=== PATIENT | male | born 1955 | race Caucasian/White ===

== ENCOUNTER 2017-07-25 09:19 | Inpatient (IN) ==
[2017-07-25] MEDS ORDERED: ASPIRIN PO STA (09:27)
--- NOTE | 2017-07-25 09:35 | EKG Report ---
Test Performed on : 07/25/2017 09:27:38 AM Test Reason : Chest Pain Blood Pressure : / mmHG Vent. Rate : 106 BPM Atrial Rate : 106 BPM P-R Int : 166 ms QRS Dur : 090 ms QT Int : 320 ms P-R-T Axes : 084 067 110 degrees QTc Int : 425 ms Sinus tachycardia. Possible Inferior infarct , age undetermined ST \T\ T wave abnormality, consider lateral ischemia Abnormal ECG When compared with ECG of 02-NOV-2016 09:49, No significant change was found Unconfirmed Result
[2017-07-25] MEDS ORDERED: ZOFRAN IV ONE (10:03)
[2017-07-25] MEDS ORDERED: MORPHINE IV ONE (10:03)
[2017-07-25 10:22] LABS: BASO% 0.2 % (0.0-0.8); EOS# 0.05 X1000 (0.0-0.7); EOS% 0.2 % (0.0-10.0); HEMATOCRIT 33.8 % (42.0-52.0); HEMOGLOBIN 11.4 g/dL (14.0-18.0); MCH 29.6 PG (27-31); MCHC 33.7 g/dL (33-37); MCV 87.8 FL (81-99); MPV 10.1 FL (7.4-10.4); PLT 125 X1000 (130-400); RBC 3.85 XMIL (4.7-6.1)
[2017-07-25 10:31] LABS: INR 1.04; PTT 28.3 Seconds (22.0-36.0)
--- NOTE | 2017-07-25 10:31 | Diag Imaging Result Doc PS360 ---
EXAM: CHEST-PORTABLE HISTORY: chest pain TECHNIQUE: Portable COMPARISON: 11/02/2016 FINDINGS: There are increased interstitial markings in the mid right lung. These are similar to the prior study. The heart is not enlarged. Pulmonary vessels are not distended. No pleural effusions identified. IMPRESSION: Increased interstitial markings in the mid right lung believed to be fibrosis. Electronically signed by Alexis Madison 07/25/2017 10:28 AM
--- NOTE | 2017-07-25 10:35 | PROVIDER DOCUMENTATION ---
HPI-General Adult - General Chief Complaint: Chest Pain Stated Complaint: CP/SOB Time Seen by Provider: 07/25/17 09:48 Source: patient, family Allergies/Adverse Reactions: Patient Allergies Allergy/AdvReac Type Severity Reaction Status Date / Time No Known Allergies Allergy Verified 07/25/17 10:50 Home Medications: Home Medication List Medication Instructions Recorded Confirmed Last Taken Type Potassium Chloride 8 meq PO DAILY #0 05/29/16 07/25/17 10/07/16 08:00 Rx Albuterol Sulfate [Proair Hfa] 2 puff IH Q6H PRN PRN 10/31/16 07/25/17 Unknown History Fluticasone/Salmeterol [Advair 1 inh INH Q12H 10/31/16 07/25/17 Unknown History 500-50 Diskus] Ipratropium/Albuterol Sulfate 1 inh INH Q4-6H PRN PRN 10/31/16 07/25/17 Unknown History [Iprat-Albut 0.5-3(2.5) mg/3 ml] Omeprazole 40 mg PO DAILY@0700 10/31/16 07/25/17 07/24/17 21:00 History Tiotropium [place] Inhaler 18 mcg IH DAILY 10/31/16 07/25/17 Unknown History [Spiriva] Albuterol 2.5MG/Ipratrop 0.5MG 3 ml INH RTQ4H #120 neb 11/02/16 07/25/17 Unknown Rx [Duoneb (A & A)] Alprazolam [Xanax] 1 mg PO BID #30 tablet 11/02/16 07/25/17 07/24/17 20:00 Rx Calcium Carbonate Chew [Tums] 500 mg PO TID #0 tab.chew 11/02/16 07/25/17 Unknown Rx Hydrocodone/Acetaminophen [[place] 1 each PO TID #30 tablet 11/02/16 07/25/17 20:00 Rx 7.5-325 Tablet] - History of Present Illness -Gen Adult Nature of Presenting Problems: Patient presents complaining of intermittent chest pain for last 24 hours. He was seen by his oncologist yesterday, Dr. Gallagher, and was scheduled for abd/ct for today for a questionable abd mass. He has history of leukemia. Not on chemo but is on "something for my immune system". During this CT scan pt experienced chest pain. He was sent here for further evaluation. He has several elevated troponins in march of 2016 during an admission for sepsis but I can find no other information about this. He does not that he has not had any of his pain medication today. on oxygen at home. Of note, his abd CT done this morning shows severe splenomegaly and severe arteriosclerosis. Location of Pain/Injury: reports: chest Pain Radiation: reports: no radiation Quality of Pain: reports: aching Severity: reports: moderate Onset/Duration: reports: 24 hours ago Timing: reports: intermittent Context/Activities at Onset: reports: none Modifying Factors: improves with: nothing Associated Symptoms: reports: chest pain. denies: anxiety, arm pain, cough, diarrhea, dizziness, fever/chills, headaches, muscle aches, sinus congestion/ drainage, nausea, rash, shortness of breath, pain with inspiration, syncope, vomiting Similar Symptoms Previously?: No Recently seen or treated by another doctor?: Yes Review of Systems - Adult - REVIEW OF SYSTEMS - ADULT Constitutional: reports: no symptoms reported Eyes: reports: no symptoms reported Ears, Nose, Mouth & Throat: reports: no symptoms reported Cardiovascular: reports: see HPI Respiratory: reports: no symptoms reported Gastrointestinal: reports: abdominal pain Genitourinary: reports: no symptoms reported Musculoskeletal: reports: no symptoms reported Integumentary: reports: no symptoms reported Neurological: reports: no symptoms reported Psychiatric: reports: no symptoms reported Endocrine: reports: no symptoms reported Hematologic/Lymphatic: reports: no symptoms reported Allergic/Immunologic: reports: no symptoms reported All Other Systems: Reviewed and Negative Past History - Adult - PAST MEDICAL HISTORY-ADULT Review of Records: reports: Old Records Reviewed Major Childhood Illnesses: reports: denies history Cardiovascular: reports: CHF, ID (x2) Respiratory: reports: asthma, COPD Neurological: reports: dementia Endocrine/Immune: reports: Leukemia Additional History: slow progressing leukemia - PRIOR SURGERIES/PROCEDURES Surgical/Procedure History: reports: cholecystectomy - IMMUNIZATION STATUS Childhood Immunizations: See Nurse Assessment Flu Vaccine: See Nurse Assessment - FAMILY HISTORY Family History: reviewed, not pertinent - SOCIAL HISTORY Smoking: quit greater than 1 year Substance Use: none/never Alcohol Use Frequency: sober (former use) Living Situation: family Physical Exam-General - PHYSICAL EXAM-ADULT Initial Vital Signs Reviewed: Yes - CONSTITUTIONAL General Appearance: alert, no apparent distress, thin - EYES Eyes: PERRL/EOMI, pink conjunctivae - HEAD, EARS, NOSE, MOUTH & THROAT HENMT: normocephalic/atraumatic - NECK Neck: supple - RESPIRATORY Respiratory: lungs clear, normal breath sounds, no pleuratic chest pain - CARDIOVASCULAR Cardiovascular: normal peripheral pulses, regular rate, rhythm - GASTROINTESTINAL (ABDOMEN) Abdominal Exam: normal bowel sounds, soft, other (splenomegaly) - LYMPHATIC Lymphatic: no adenopathy - MUSCULOSKELETAL Back Exam: normal inspection Extremity: non-tender, normal gait, normal inspection - SKIN Integumentary: normal color - NEUROLOGIC Neurologic: grossly normal - PSYCHIATRIC Psych/Mental Status: normal mood/affect, oriented x 3 Progress - PLAN OF CARE/RESULTS Progress/Plan/Lab Results: Vital Signs - 8 hr 07/25/17 09:24 Temperature 97.7 F Pulse Rate 114 H Respiratory Rate 20 Blood Pressure 119/81 O2 Sat by Pulse Oximetry 99 Laboratory Results - last 24 hr 07/25/17 07/25/17 10:05 10:05 WBC 31.80 H RBC 3.85 L Hgb 11.4 L Hct 33.8 L MCV 87.8 MCH 29.6 MCHC 33.7 RDW Std Deviation 14.9 H Plt Count 125 L MPV 10.1 Neut % (Auto) Not Reportable Lymph % (Auto) Not Reportable [place] % (Auto) Not Reportable Eos % (Auto) 0.2 Baso % (Auto) 0.2 Neut # (Auto) Not Reportable Lymph # (Auto) Not Reportable [place] # (Auto) Not Reportable Eos # (Auto) 0.05 Baso # (Auto) 0.05 PT 11.0 INR 1.04 PTT (Actin FS) 28.3 Orders Category Date Time Status Cardiac Monitoring DIRECTED Care 07/25/17 09:27 Active Oxygen Therapy- ED Nursing DIRECTED Care 07/25/17 09:27 Active Saline Loc NOW Care 07/25/17 09:27 Active CHEST-PORTABLE [RAD] Stat Exams 07/25/17 10:03 Completed CBC WITH ELECTRONIC DIFF [HEME] Stat Lab 07/25/17 10:05 Completed CK PROFILE [SP CHEM] Stat Lab 07/25/17 10:05 Received COMPREHENSIVE METABOLIC PANEL [CHEM] Stat Lab 07/25/17 10:05 Received MAGNESIUM [CHEM] Stat Lab 07/25/17 10:05 Received PRO B-NATRIURETIC PEPTIDE Stat Lab 07/25/17 10:05 Received PROTIME WITH INR [COAG] Stat Lab 07/25/17 10:05 Completed PTT [COAG] Stat Lab 07/25/17 10:05 Completed TROPONIN T Stat Lab 07/25/17 10:05 Received Aspirin Med 07/25/17 09:27 Discontinued 325 mg PO STAT STA Morphine Med 07/25/17 10:03 Discontinued 4 mg IV NOW ONE Ondansetron [Zofran] Med 07/25/17 10:03 Discontinued 4 mg IV NOW ONE EKG [EKG] Stat Ther 07/25/17 09:27 Draft Result Diagrams: 07/25/17 10:05 07/25/17 10:05 - REASSESSMENT Reassessment #1 Time Reassessed: 11:42 Status: improving (pt is feeling better. His chest pain has improved. He has significant lateral EKG changes. Un Will admit for trending of troponins and further management. Pt seen by Dr. Walls.) - CONSULTS/PCP/HOSPITALIST Notification #1 *Consult/PCP/Hospitalist*: ASHLEY Donohue for Dr. Zarate Time Discussed: 11:48 Consult Disposition: Admit (obtain d-dimer.) Departure - Departure Date of Disposition Decision: 07/25/17 Time of Disposition Decision: 11:48 DIAGNOSIS: Abnormal EKG, Elevated d-dimer Chest pain Qualifiers: Chest pain type: unspecified Qualified Code(s): R07.9 - Chest pain, unspecified Leukocytosis Qualifiers: Leukocytosis type: unspecified Qualified Code(s): D72.829 - Elevated white blood cell count, unspecified Disposition: ADMITTED INPATIENT 09 Certified Medical Emergency: Emergent Condition: Stable Referrals and Follow-Ups: Gautam Evans MD [Primary Care Provider] - - Critical Care Note This patient required my direct & personal management of CC.: No Attestation - Physician/ [place] Attestation Patient care was provided by Advanced Practice Provider:: Yes Advanced Practice Provider:: Mat Boykin Advanced Practice Provider documentation review:: The Mid-level provider documentation, treatment plan and medical decision making was reviewed by the physician who agrees with all treatment and medical decision making by the P. The physician spent face to face time with patient:: Yes Advanced Practice Provider documentation review:: Supervising physician onsite and consulted in the evaluation and care of this patient. The physician did have a face to face encounter with the patient.
[2017-07-25 10:44] LABS: AGAP 9; ALBUMIN 3.9 g/dL (3.5-5.0); ALKALINE PHOSPHATASE 69 U/L (32-122); BUN 14 mg/dL (8-22); CALCIUM 8.4 mg/dL (8.8-10.2); CHLORIDE 98 mmol/L (98-107); CK PROFILE 30 U/L (24-204); COSMO 271; GOT 15 U/L (10-34); GPT 6 U/L (10-44); MAGNESIUM 1.7 mg/dL (1.5-2.7); POTASSIUM 4.7 mmol/L (3.5-5.1); SODIUM 135 mmol/L (136-145); TCO2 28 mmol/L (25-35); TOTAL BILIRUBIN 0.63 mg/dL (0.20-1.00); TOTAL PROTEIN 6.8 g/dL (6.3-8.3)
[2017-07-25 11:05] LABS: URINE CULTURE NEEDED? NO; URINE MICRO REVIEW NEEDED? NO; URINE SOURCE CLEAN CATCH
[2017-07-25 11:12] LABS: BILIRUBIN URINE NEGATIVE (NEGATIVE); BLOOD URINE NEGATIVE (NEGATIVE); COLOR YELLOW; GLUCOSE URINE NEGATIVE (NEGATIVE); LEUKOCYTES URINE NEGATIVE (NEGATIVE); NITRITE URINE NEGATIVE (NEGATIVE); PROTEIN URINE NEGATIVE (NEGATIVE); SP GRAVITY URINE 1.041; TURBIDITY URINE CLEAR (CLEAR); UR EPITHELIAL CELLS <10 /HPF (<10); URINE BACTERIA NEGATIVE /HPF; URINE RBC <10 /HPF (<10); URINE WBC <10 /HPF (<10); UROBILINOGEN URINE NORMAL (NORMAL)
--- NOTE | 2017-07-25 12:05 | ED EKG INTERP ---
This chart was entered by Janina Yi Scribe, acting as scribe for Hillary Walls MD. EKG Interpretation - EKG Time of EKG reading by physician:: 09:27 EKG Read and Signed by:: Hillary Walls EKG Interpretation (*Must complete 3 of following elements*): Abnormal (ST & T wave abnormality, consider lateral ischemia) Rate: 106 Rhythm: sinus tachycardia Comments: possible inferior infarct, age undetermined Attestation - Physician/ [place] Attestation Patient care was provided by Advanced Practice Provider:: No The physician spent face to face time with patient:: Yes Advanced Practice Provider documentation review:: Supervising physician onsite and consulted in the evaluation and care of this patient. The physician did have a face to face encounter with the patient. This chart was documented by the indicated scribe, (Janina Yi Scribe) and accurately reflects the services I performed and decisions made by me, Hillary Walls MD, as attested by the provider's signature.
[2017-07-25 12:19] LABS: MANUAL DIFF NEEDED? YES
[2017-07-25 12:22] LABS: LYMPHS 50 % (21-51); MONO 14 % (1-9); NRBC 1 % (0-0)
[2017-07-25 12:37] LABS: HYPOCHROM 1+
--- NOTE | 2017-07-25 15:05 | HISTORY AND PHYSICAL ---
PCP: Dr. Gautam Evans. [employer] RELATIONS COORDINATOR: Dr. Paige. CHIEF COMPLAINT: Chest pain. HISTORY OF PRESENT ILLNESS: Mr. Cast is a 61-year-old male with a history of CLL followed by Dr. Gallagher, COPD, coronary disease, nicotine dependence who presents to the ER with 24 hours of abdominal and chest pain. Symptoms began yesterday when he began to complain of some abdominal pain, he went to Dr. Gallagher's office who ordered a CT scan of the abdomen and pelvis today for concern of abdominal mass. This morning the patient was in CT and began experiencing a chest pain in the midsternum associated with shortness of breath, he has also had abdominal pain and nausea. He got done with the CAT scan and was transferred to the ER for further evaluation. In the ER he had several labs and diagnostics done. His EKG showed nonspecific ST changes in the lateral leads, he had a profound leukocytosis, elevated D-dimer and elevated proBNP. He reports he is not on chemotherapy but is on something for his "immune system" that he takes once a month. He has not had any lower extremity edema and no orthopnea, no cough or fever, no sputum production. A chest x-ray done in the ER today showed interstitial markings in the mid right lung believed to be fibrosis. He is now going to be admitted for further treatment evaluation. PAST MEDICAL HISTORY: 1. COPD. 2. Nicotine dependence. 3. CLL followed by Dr. Gallagher. 4. Chronic pain. 5. Anxiety. 6. GERD. SURGICAL HISTORY: He has had a cholecystectomy, face and nose surgery. SOCIAL HISTORY: He smokes a pack a day, drinks 2 beers a day. He takes 1 dose of NyQuil every night for sleep has been doing so for multiple years. Family is at the bedside. FAMILY HISTORY: Noncontributory. REVIEW OF SYSTEMS: Fourteen-point review of systems obtained found to be negative with the exception of the HPI. HOME MEDICATIONS: Albuterol inhaled every 4 hours, Xanax 1 mg p.o. b.i.d., Tums 500 mg p.o. t.i.d., fluticasone 1 inhaled q.12 hours, hydrocodone t.i.d., omeprazole 40 mg daily, KCl 8 mEq p.o. daily, Spiriva inhaled as directed. ALLERGIES: No known drug allergies. PHYSICAL EXAMINATION: VITAL SIGNS: Blood pressure is 98/66, heart rate 88, respiratory 16, O2 saturation 97% on 2 L, temperature is 97.7 degrees. GENERAL: This is a cachectic appearing 61-year-old male lying in hospital bed no acute distress. NEUROLOGIC: He is awake, alert, oriented. Follows commands without focal deficits. HEENT: Head is atraumatic and normocephalic. His pupils are equal, round, reactive to light. Oral mucosa is moist. Trachea is midline. CHEST: Diminished at the bases with Velcro type crackling over the right mid lung zone. CV: Regular rate and rhythm. S1-S2 is noted. No murmurs. GI: Soft, nontender, bowel sounds are hypoactive. EXTREMITIES: No edema, clubbing or cyanosis. Pulses are trace bilaterally. DIAGNOSTIC DATA: Abdomen and pelvis CT done earlier today shows very severe splenomegaly similar prior COPD with chronic bronchitis, very severe peripheral vascular disease involving both pelvic and femoral artery systems, nonobstructing right renal stone. EKG sinus rhythm with nonspecific ST changes in the lateral leads. WBC 31.8, hemoglobin 11.4, hematocrit 33.8, platelet count is 125,000, INR 1.04, D-dimer 1.08, sodium 135, potassium 4.7, chloride 98, CO2 28, anion gap 9, BUN 14, creatinine 1, glucose is 100, calcium 8.4, magnesium 1.7, total bilirubin 0.63, AST 15, ALT 6, alkaline phosphatase 69, troponin 0.045, proBNP 7471, albumin 3.9. UA is negative. ASSESSMENT/PLAN: 1. Chest pain: We are going to admit the patient to the floor with telemetry, will trend his enzymes, make sure he has had aspirin and consult Cardiology. Will order an echocardiogram as well. 2. Congestive heart failure: The patient has a history of diastolic failure. His pro B is 7400. We are going to recheck echocardiogram to evaluate the right heart and pulmonary pressures given his COPD. 3. Leukocytosis: Unlikely to be infectious. A review of his WBCs from all his past admission shows he has had a chronically elevated white count since 2013 and he is on Neupogen. We are going to check blood cultures and lactic acid. 4. Chronic obstructive pulmonary disease. Continue oxygen as needed and nebs. He does have some mild abnormalities on his chest x-ray, it is possible he could have fibrosis. Will order a CT for the morning given that he has had full IV contrast load today. 5. Anxiety and chronic pain: Chronic and stable, continue home medications. 6. Deep vein thrombosis prophylaxis with Lovenox. Further recommendations to follow. Dictated by CHELY Zimmerman for Lazaro France MD cc: CHELY Zimmerman MD
[2017-07-25] MEDS ORDERED: NORCO-7.5 ONE (15:44)
[2017-07-25] MEDS ORDERED: XANAX ONE (15:44)
[2017-07-25] MEDS: NORCO-7.5 PO SCH ×2 (15:50→22:13)
[2017-07-25] MEDS: XANAX PO SCH ×2 (15:50→22:14)
[2017-07-25] MEDS ORDERED: DUONEB (A & A) INH PRN (17:31)
[2017-07-25] MEDS: DUONEB (A & A) INH SCH ×3 (17:53→23:00)
--- NOTE | 2017-07-25 18:25 | CONSULTATION ---
DATE OF CONSULTATION: 07/25/2017 CHIEF COMPLAINT: Abdominal pain, weakness, nausea. REASON FOR CONSULTATION: Chest pain that happened today during a test. HISTORY: Mr. Cast is a 61-year-old male, patient of Dr. Evans and Dr. Paige, who presented to Dr. Gallagher's office yesterday for a checkup. Dr. Gallagher told him that he had a possible mass in the abdomen. Overnight he had the sensation of pain in the upper abdomen, cramping tightness in the lower chest. The patient said that he had eaten some onion the day before and he continued to taste the onion in his mouth all day long. Late last night the pain crept up. It was more uncomfortable. Early in the morning hours he felt somewhat better and he came for an elective CT scan of the abdomen ordered by Dr. Gallagher to check on the possible mass. As he was holding his arms up for the CT scan, he developed significant pain in the chest and abdomen, and that is when they had to take him to the emergency room, and they all decided to put him in the hospital for evaluation. His electrocardiogram done at that time, which was 9:27 in the morning, shows sinus tachycardia with a diffuse nonspecific T wave change. That is not a new finding. His abdomen and pelvis CT was reported as indicating the presence of very severe splenomegaly similar to a prior study from May of last year. He had COPD with chronic bronchitis and the interesting finding was severe peripheral occlusive vascular disease involving both iliac vessels and femoral vessels. At any rate, the patient has felt somewhat better since he was seen in the ER. His chest x-ray has been reported as indicating increased interstitial markings in the mid right lung, probably fibrosis. He has been sent for an echocardiogram that has just been finished and now he is being admitted to the hospital for further management. Of note, his white count is 31,800, his hemoglobin is 11.4. He has 10% neutrophils, 50% lymphocytes, 1% nucleated RBCs, 18% atypical lymphocytes, 8% unidentified cells, and 40% monocytes. His BUN and creatinine are normal. His proBNP was elevated at 7471. Troponin was negative. The patient basically is feeling fine when I am seeing him at about 5 p.m. PAST MEDICAL HISTORY: His past history is significant for COPD. He has had a previous non ST elevation myocardial infarction on a previous hospital admission. He was taken to [facility] where they decided not to proceed with heart catheterization. They did instead a myocardial perfusion study which showed a fixed inferior defect consistent with an old inferior scar. According to that test, his ejection fraction was calculated at 40%. There was inferior akinesis. The patient has been really undernourished. His body weight has been in the 97 pound range. He has history of anxiety. He has been treated by Dr. Gallagher for chronic lymphocytic leukemia. He has a history of hypothyroidism. REVIEW OF SYSTEMS: His review of systems is positive for chronic exertional dyspnea. He has to use oxygen at home. He has always been underweight. Appetite is really not that good. SOCIAL HISTORY: He is . He lives with one daughter. He has had a total of four children, one young. He has been a smoker in the past and also a drinker in the past. PAST SURGICAL HISTORY: He has had hernia repair, cholecystectomy, and rectal surgery. FAMILY HISTORY: His family history is positive for coronary heart disease in the mother and a sister. HOME MEDICATIONS: His home medications at the time of this admission included the followin. Albuterol inhaler. 2. Alprazolam 1 mg twice a day. 3. Omeprazole 40 daily. 4. Potassium chloride 80 mEq daily. 5. Spiriva inhaler. 6. Advair 500/50 Diskus inhaler every 12 hours. 7. Hydrocodone/acetaminophen 1 tablet 3 times a day. He has chronic pain in the lower back and legs. He does have claudication. PHYSICAL EXAMINATION: Vital signs: Blood pressure today is 136/74. Temperature 98.4. Pulse 73. Respirations 16. General: He is awake, alert, oriented. He appears to be much older than his stated age. He appears to be cachectic. HEENT: Unremarkable. Chest: Diminished breath sounds bilaterally with occasional rales. Cardiovascular: Heart sounds are distant, regular. I do not hear any gallop or murmur. Abdomen: Soft with some tenderness in the left upper quadrant. I believe there is splenomegaly. The spleen edge is somewhat dull and slightly tender. It occupies a fair amount of the left upper quadrant. The liver is palpable about 2 fingerbreadths below the right rib margin. Bowel sounds diminished. Extremities: No palpable pulses in the feet. Significant muscle wasting. Neurologic: He moves four extremities, follows commands. Cranial nerves are normal. He has subtle diffuse weakness. LABORATORY DATA: Blood work, in addition to what I just said, includes sodium 135, potassium 4.7, BUN 14, creatinine 1.0, magnesium 1.7. CK 30. Albumin 3.9. Globulin is 2.9. IMPRESSION: 1. The patient presented to the hospital because he developed an episode of chest pain while having a CT scan of the chest. This is truly atypical. This is really not angina pain. 2. History of coronary heart disease, previous myocardial infarction, non ST elevation, with documentation of an inferior wall scar in 2016, impaired ejection fraction of 40%, probably ischemic cardiomyopathy. 3. Radiographic evidence of bilateral occlusive arterial disease involving the iliac vessels and the femoral vessels. Please refer to CT report from today, July 25. 4. Chronic obstructive pulmonary disease. 5. Splenomegaly related to patient's underlying hematological malignancy, presumably chronic lymphocytic leukemia, being treated by Dr. Gallagher. RECOMMENDATIONS: At this point in time, I would suggest to get Dr. Gallagher's opinion regarding this patient's marked leukocytosis. This may or may not represent simply progression of his condition or additional intercurrent infection. The patient appears to have chronic systolic heart failure which is manifested by chronic dyspnea and his elevate proBNP. Echocardiogram has been obtained already. It is going to be reported later. I would suggest to consider using LIDYA inhibitors on him to manage his heart failure or angiotensin blockers or try Entresto. Beta-blockers could be potentially contraindicated because of his advanced COPD. At any rate, I do not believe this patient had a heart attack. We will obtain serial troponin levels and serial EKGs to make sure that none of that is happening. Further advice will be forthcoming. Thank you for the opportunity to participate in his evaluation. cc: Jeromy Wood MD
[2017-07-25] MEDS: TUMS PO SCH (18:37)
[2017-07-25] MEDS: NICODERM PATCH TD SCH (18:37)
[2017-07-25] MEDS: ADVAIR 500/50 DISKUS INH SCH (19:30)
[2017-07-26] MEDS: DUONEB (A & A) INH SCH ×6 (03:05→23:00)
[2017-07-26 06:36] LABS: AGAP 12; BUN 14 mg/dL (8-22); CALCIUM 8.7 mg/dL (8.8-10.2); CHLORIDE 102 mmol/L (98-107); COSMO 283; IRON SATURATION 11 %; POTASSIUM 4.8 mmol/L (3.5-5.1); SODIUM 142 mmol/L (136-145); TCO2 28 mmol/L (25-35); TIBC 194 ug/dL; TOTAL IRON 22 ug/dL (53-167); UNBOUND IRON 172 ug/dL (112-346)
[2017-07-26] MEDS: PRILOSEC PO SCH (06:40)
[2017-07-26] MEDS: ADVAIR 500/50 DISKUS INH SCH ×2 (08:23→19:05)
[2017-07-26] MEDS: SPIRIVA INH SCH (08:23)
[2017-07-26 09:08] LABS: HEMATOCRIT 34.9 % (42.0-52.0); HEMOGLOBIN 11.7 g/dL (14.0-18.0); MANUAL DIFF NEEDED? YES; MCH 29.4 PG (27-31); MCHC 33.5 g/dL (33-37); MCV 87.7 FL (81-99); MPV 9.7 FL (7.4-10.4); PLT 115 X1000 (130-400); RBC 3.98 XMIL (4.7-6.1)
[2017-07-26 09:11] LABS: BANDS 2 % (0-1); LYMPHS 64 % (21-51); MONO 16 % (1-9)
--- NOTE | 2017-07-26 09:42 | Diag Imaging Result Doc PS360 ---
CT ANGIOGRM/PULMONARY ARTERIES - 07/26/2017 INDICATION: cp/sob TECHNIQUE: Axial CT images were obtained after administering intravenous contrast. Coronal MIP images were generated. A CT dose reduction protocol was used. COMPARISON: 05/26/2016 FINDINGS: No pulmonary embolism. There is splenomegaly. The spleen measures 14.1 x 7.3 cm. Heart size is normal. Stable shotty mediastinal lymph nodes, nonspecific. There is some trace infiltrate in the right upper lobe new from prior. Otherwise stable end-stage COPD with chronic bronchitis. There is some linear atelectasis in the lung bases. There are moderate degenerative changes of the spine. No acute or suspicious bony lesion. IMPRESSION: 1. Negative for pulmonary embolism. 2. Slight worsening right upper lobe infiltrate. 3. Severe COPD with chronic bronchitis and pulmonary scarring. 4. Splenomegaly. Electronically signed by Dc Carrasquillo 07/26/2017 9:40 AM
[2017-07-26] MEDS: ASPIRIN PO SCH (10:25)
[2017-07-26] MEDS: NICODERM PATCH TD SCH (10:25)
[2017-07-26] MEDS: TUMS PO SCH ×3 (10:25→17:03)
[2017-07-26] MEDS: NORCO-7.5 PO SCH ×3 (10:25→17:03)
[2017-07-26] MEDS: XANAX PO SCH ×2 (10:25→18:45)
[2017-07-26] MEDS: LOVENOX SUBQ SCH (10:26)
--- NOTE | 2017-07-26 14:59 | ECHO REPORT ---
ORDER DATE: 07/25/2017 DATE OF : 1955 2D ECHOCARDIOGRAM: ECHOCARDIOGRAPHIC MEASUREMENTS: 1. Interventricular septum 1.0, left ventricular posterior wall 0.9, diastolic diameter 6, left atrium 2.1, aorta 3.3 cm. 2. Left ventricle upper limit of normal. Estimated ejection fraction of 30%. There is global hypokinesis. In addition, there is inferior akinesis. Aortic valve leaflets are trileaflet. Mitral valve was normal. Tricuspid valve was normal. Pulmonic valve was normal. There is mild mitral regurgitation. Mild tricuspid regurgitation. Peak velocity across the tricuspid valve was 2.4 m/sec. 3. Peak velocity across the aortic valve less than 2 m/sec. There is no aortic stenosis or regurgitation. 4. There is no pericardial effusion or obvious intracardiac mass or thrombus seen. cc: MD Andrey Riddle CRNP
--- NOTE | 2017-07-26 16:28 | PROGRESS NOTE ---
DATE: 07/26/2017 SUBJECTIVE: This patient feels better. He is not complaining of chest pain at this moment. His WBC though is still high. I have consulted Dr. Gallagher to see this patient. He has a history of CLL and probably this increase of his leukocytes is related to his treatment/disease but also this patient had a right upper lung infiltrate and I will start this patient on antibiotics for possible pneumonia. He states that he has been having dry cough for a few days. OBJECTIVE: Vital Signs: Temperature 97.8 degrees, pulse 94, respiratory rate 20, blood pressure 98/67, oxygen saturation 98% on 3 L of nasal cannula. General: Chronically ill patient in no acute distress. HEENT: Head normocephalic. No trauma. PERRLA. Neck: Supple. No JVD. No masses. Central trachea. Chest: Mild rhonchi at the level of the right upper and middle lung. Cardiovascular: RRR. Abdomen: No hepatomegaly but he has splenomegaly that is not painful. Extremities: No edema. No clubbing. No cyanosis. Neurological: The patient is alert and oriented x3. No focal deficits. LABORATORY: WBC 30.8, hemoglobin 11.7, hematocrit 34.9, platelets 115,000. Sodium 142, potassium 4.8, chloride 102, bicarbonate 28, BUN 14, creatinine 0.9, glucose 93, calcium 8.7. ASSESSMENT AND PLAN: 1. Chest pain. I do not think this is cardiac in nature, Cardiology Department has evaluated this patient. We will continue to monitor. He is not complaining of chest pain today. 2. Right upper lung pneumonia. I have placed this patient on antibiotics ceftriaxone and vancomycin. Will continue to monitor. 3. Congestive heart failure stable. He is not complaining of shortness of breath or chest pain. 4. Leukocytosis. This is likely related to his chronic lymphocytic leukemia treatment/disease. I have consulted Dr. Gallagher, his hematology/oncologist. 5. History of chronic lymphocytic leukemia aware. Like I mentioned before, I consulted Hematology/Oncology. 6. Chronic obstructive pulmonary disease not in exacerbation. 7. Anxiety and chronic pain chronic and stable. Continue with home medications. 8. Deep vein thrombosis prophylaxis with Lovenox. cc: Lazaro France MD
[2017-07-26] MEDS: ROCEPHIN 1 GM in NS 50 ML IV SCH (17:03)
--- NOTE | 2017-07-26 17:40 | CONSULTATION ---
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 HISTORY OF PRESENT ILLNESS: This patient is known to us with low-grade leukemia /lymphoma also receiving IVIG every 4 weeks. Was seen in our clinic on 07/24. He was complaining of some abdominal pain, his white count was more elevated. It was 32.7, it is typically in the range of about 20. He also had some thrombocytopenia with platelet count 119,000 on examination and was felt that if he had more noticeable splenomegaly versus abdominal mass so we sent patient for a CT abdomen, pelvis. Patient came and had the abdomen, pelvis CT performed which showed severe splenomegaly that is similar to prior, it was 15 x 7.7 x 21 cm, COPD with chronic bronchitis,and severe peripheral vascular disease involving both pelvic and femoral arteries and small nonobstructing right renal stone. He continued to have abdominal pain and felt poorly so he came to the emergency room for further evaluation. His D-dimer was elevated. A pulmonary arteriogram was performed which was negative for pulmonary embolism but did show a slight worsening right upper lobe infiltrate and severe COPD with chronic bronchitis and pulmonary scarring and also splenomegaly. Cardiology has been consulted. An echocardiogram Doppler has been obtained. It shows ejection fraction of 30% with global hypokinesis with inferior akinesis, there is no obvious thrombus or mass seen. The patient's WBC on admission was 31.8, hemoglobin 11.4, platelet count 125,000. He had some mild chest pain that has resolved. He does have known chronic anxiety. He has been started on ceftriaxone and vancomycin and cardiology has been consulted. Patient does deny any obvious fevers, chills, drenching night sweats, new lumps, bumps or bone pain or worsening dyspnea. REVIEW OF SYSTEMS: Are negative unless indicated in the HPI. PAST MEDICAL HISTORY: Leukemia/lymphoma, hypogammaglobulinemia on every 4 weekly IVIG he has recurrent infections with that, nicotinism, he also does have normocytic anemia, anxiety and gastroesophageal reflux disease. FAMILY SOCIAL HISTORY: Patient smokes at least 1 pack cigarettes a day. He drinks several beers daily. Denies illicit drug use. He has supportive family. HOME MEDICATIONS: Albuterol inhalers, Spiriva, omeprazole and hydrocodone. ALLERGIES: No known allergies. PHYSICAL EXAMINATION: Vital Signs: Stable. General: This is a chronically ill male in no acute distress. HEENT: Head is normocephalic, atraumatic. Mucous membranes are dry. Trachea is midline. Cardiovascular: S1, S2 to auscultation with no heaves, lifts, thrills, murmurs. Pulmonary: Exploratory wheeze with diminished bilateral bases. Abdomen: Soft. There is splenomegaly noted, is nontender. Extremities: There is no edema. Musculoskeletal: Moves all extremities. Neurologic: Alert, orient x3. Psychiatric: Appropriate to situation. DIAGNOSTIC DATA: Imaging as above. WBC 30.8, hemoglobin 11.7, hematocrit 34.9 , platelet count 119,000. Sodium 142, potassium 4.8, BUN 14, creatinine is 0.9. ASSESSMENT AND PLAN: 1. Leukocytosis is getting worse. Patient does have known low-grade leukemia/ lymphoma and may require treatment in the near future, also could be related to respiratory infection/pneumonia. He is currently receiving antibiotics per primary team. 2. Right upper lobe pneumonia on antibiotics per primary team. 3. Congestive heart failure per primary team and cardiology. 4. Chronic obstructive pulmonary disease, supportive care. 5. Splenomegaly is stable. 6. Abdominal pain that is again stable and we will monitor closely. 7. Deep vein thrombosis prophylaxis with Lovenox. 8.Hypogammaglobulinemia on IVIG. Dictated by CHELY Duarte for Mitesh Gallagher MD cc: CHELY Duarte MD [facility]
[2017-07-26] MEDS: ZITHROMAX 500 MG/NS 500 MG/250 ML IVPB IV SCH (17:49)
[2017-07-27] MEDS: XANAX PO SCH ×5 (00:45→21:20)
[2017-07-27] MEDS: DUONEB (A & A) INH SCH ×5 (03:25→19:56)
[2017-07-27 06:54] LABS: HEMATOCRIT 33.5 % (42.0-52.0); HEMOGLOBIN 11.1 g/dL (14.0-18.0); MCH 29.8 PG (27-31); MCHC 33.1 g/dL (33-37); MCV 89.8 FL (81-99); MPV 9.6 FL (7.4-10.4); RBC 3.73 XMIL (4.7-6.1)
[2017-07-27] MEDS: PRILOSEC PO SCH (07:03)
[2017-07-27 07:21] LABS: AGAP 13; BUN 19 mg/dL (8-22); CALCIUM 8.4 mg/dL (8.8-10.2); CHLORIDE 102 mmol/L (98-107); COSMO 281; POTASSIUM 4.7 mmol/L (3.5-5.1); SODIUM 140 mmol/L (136-145); TCO2 25 mmol/L (25-35)
[2017-07-27] MEDS: ADVAIR 500/50 DISKUS INH SCH ×2 (08:12→19:56)
[2017-07-27] MEDS: SPIRIVA INH SCH (08:13)
[2017-07-27] MEDS: LOVENOX SUBQ SCH (08:21)
[2017-07-27] MEDS: NICODERM PATCH TD SCH (08:21)
[2017-07-27] MEDS: NORCO-7.5 PO SCH ×4 (08:21→21:19)
[2017-07-27] MEDS: COZAAR PO SCH ×2 (08:22→08:27)
[2017-07-27] MEDS: ASPIRIN PO SCH (08:22)
[2017-07-27] MEDS: TUMS PO SCH ×3 (08:22→16:52)
--- NOTE | 2017-07-27 13:26 | PROGRESS NOTE ---
DATE: 07/27/2017 SUBJECTIVE: This patient is feeling better. He is still complaining of dry cough. Dr. Gallagher from Hematology/Oncology has been consulted, recommendations appreciated. After starting antibiotics his white blood cells decreased from 30,000 to 26,000, probably this is getting better but he has a history of CLL so I will keep an eye on this patient. OBJECTIVE: Vital Signs: Temperature 97.7 degrees, pulse 99, respiratory rate 18, blood pressure 91/57, oxygen saturation 94% on 2 L of nasal cannula. HEENT: Head normocephalic. No trauma. PERRLA. Neck: Supple. No JVD. No masses. Central trachea. Chest: Mild rhonchi at the level of the right upper and middle lung. Cardiovascular: RRR. Abdomen: No hepatomegaly but he has splenomegaly that is not painful. Extremities: No edema. No clubbing. No cyanosis. Neurologic: The patient is alert and oriented x3. No focal deficits. LABORATORY: WBC 26,000, hemoglobin 11.1, hematocrit 33.5, platelets 113,000. Sodium 140, potassium 4.7, chloride 102, bicarbonate 25, BUN 19, creatinine 0.9, glucose 94, calcium 8.4, magnesium 1.7. ASSESSMENT AND PLAN: 1. Right upper lung pneumonia. Continue with ceftriaxone and azithromycin, will continue to monitor. His leukocytes are improving but they are still high. 2. Chest pain resolved. 3. Congestive heart failure stable. He is not complaining of shortness of breath or chest pain. 4. Leukocytosis. This is likely related to his chronic lymphocytic leukemia treatment/disease and/or pneumonia, Dr. Gallagher from Hematology/Oncology on board. 5. History of chronic lymphocytic leukemia aware. Like I mentioned before, Hematology/Oncology is following this patient. 6. Chronic obstructive pulmonary disease not in exacerbation. 7. Anxiety and chronic pain, this is stable. Continue with home medications. 8. Deep vein thrombosis prophylaxis with Lovenox. cc: Lazaro France MD
[2017-07-27] MEDS: ROCEPHIN 1 GM in NS 50 ML IV SCH (16:17)
[2017-07-27] MEDS: ZITHROMAX 500 MG/NS 500 MG/250 ML IVPB IV SCH (16:49)
[2017-07-28] MEDS: DUONEB (A & A) INH SCH ×3 (03:09→10:53)
--- NOTE | 2017-07-28 05:40 | EKG Report ---
Test Performed on : 07/27/2017 07:01:21 AM Test Reason : Chest Pain/ASHD Blood Pressure : / mmHG Vent. Rate : 100 BPM Atrial Rate : 100 BPM P-R Int : 156 ms QRS Dur : 080 ms QT Int : 334 ms P-R-T Axes : 086 066 061 degrees QTc Int : 430 ms Normal sinus rhythm. ST \T\ T wave abnormality, consider lateral ischemia Abnormal ECG When compared with ECG of 26-JUL-2017 06:27, (Unconfirmed) No significant change was found ST now depressed in far lateral leads V4-V5-V6 Confirmed by Dillon Justice DO ([id number]) on 07/29/2017 5:56:29 PM
--- NOTE | 2017-07-28 05:42 | EKG Report ---
Test Performed on : 07/26/2017 06:27:10 AM Test Reason : Chest Pain/ASHD Blood Pressure : / mmHG Vent. Rate : 087 BPM Atrial Rate : 087 BPM P-R Int : 160 ms QRS Dur : 090 ms QT Int : 356 ms P-R-T Axes : 070 065 -64 degrees QTc Int : 428 ms Normal sinus rhythm. Possible Inferior infarct (cited on or before 25-JUL-2017) Abnormal ECG When compared with ECG of 25-JUL-2017 09:27, (Unconfirmed) T wave amplitude has decreased in early precordial leads V1-V2-V3 ST no longer depressed in far lateral leads V4-V5-V6 T wave inversion no longer evident in far lateral leads V4-V5-V6 Confirmed by Dillon Justice DO ([id number]) on 07/29/2017 5:51:03 PM
[2017-07-28 06:10] LABS: AGAP 8; BUN 19 mg/dL (8-22); CALCIUM 8.3 mg/dL (8.8-10.2); CHLORIDE 103 mmol/L (98-107); COSMO 279; POTASSIUM 4.1 mmol/L (3.5-5.1); SODIUM 139 mmol/L (136-145); TCO2 28 mmol/L (25-35)
[2017-07-28 06:31] LABS: HEMATOCRIT 31.5 % (42.0-52.0); HEMOGLOBIN 10.4 g/dL (14.0-18.0); MCH 29.7 PG (27-31); MPV 9.6 FL (7.4-10.4); RBC 3.5 XMIL (4.7-6.1)
--- NOTE | 2017-07-28 07:03 | EKG Report ---
Test Performed on : 07/28/2017 06:46:32 AM Test Reason : Chest Pain/ASHD Blood Pressure : / mmHG Vent. Rate : 082 BPM Atrial Rate : 082 BPM P-R Int : 160 ms QRS Dur : 082 ms QT Int : 362 ms P-R-T Axes : 050 056 114 degrees QTc Int : 422 ms Normal sinus rhythm. Cannot rule out Inferior infarct , age undetermined ST \T\ T wave abnormality, consider lateral ischemia Abnormal ECG When compared with ECG of 27-JUL-2017 07:01, (Unconfirmed) T wave inversion no longer evident in Inferior leads Persistant non-specific ST segment depression far lateral leads Confirmed by Dillon Justice DO ([id number]) on 07/29/2017 6:04:11 PM
[2017-07-28] MEDS: ADVAIR 500/50 DISKUS INH SCH (07:36)
[2017-07-28] MEDS: SPIRIVA INH SCH (07:37)
[2017-07-28] MEDS: PRILOSEC PO SCH (07:39)
[2017-07-28] MEDS: COZAAR PO SCH (08:38)
[2017-07-28] MEDS: LOVENOX SUBQ SCH (08:38)
[2017-07-28] MEDS: XANAX PO SCH ×2 (08:38→13:39)
[2017-07-28] MEDS: NICODERM PATCH TD SCH (08:38)
[2017-07-28] MEDS: ASPIRIN PO SCH (08:38)
[2017-07-28] MEDS: TUMS PO SCH ×2 (08:38→13:39)
[2017-07-28] MEDS: NORCO-7.5 PO SCH ×2 (08:39→13:39)
[2017-07-28 13:47] VITALS: BP 106/72
[2017-07-28] MEDS ORDERED: KEFLEX PO SCH (21:00)
[2017-07-29] MEDS ORDERED: ZITHROMAX PO SCH (09:00)
--- NOTE | 2017-07-29 10:08 | DISCHARGE SUMMARY ---
ADMISSION DATE: 07/25/2017 DISCHARGE DATE: 07/28/2017 CONSULTATIONS: 1. Dr. Wood with cardiology. 2. Dr. Gallagher with oncology. PERTINENT PROCEDURES: 1. Echocardiogram showed an EF of 30% with global hypokinesis. 2. Pulmonary arteriogram negative for PE. Sliding worsening right upper lobe infiltrate. Severe COPD with chronic bronchitis and pulmonary scarring and splenomegaly. DISCHARGE DIAGNOSES: 1. Right upper lobe pneumonia. The patient will continue with azithromycin and Keflex. Bronchodilators. Aggressive pulmonary toilet. 2. Low-grade leukemia lymphoma, as well as hypogammaglobulinemia on intravenous immunoglobulin followed by Dr. Richter. Will follow up with him in 2 weeks. 3. Chest pain, resolved, with atypical chest pain developed while he was receiving a CT scan of the chest. Cardiac enzymes were negative. 4. Congestive heart failure exacerbation, now stable. Patient being discharged on losartan at cardiology's recommendation. 5. Leukocytosis probably secondary to his chronic lymphocytic leukemia treatment and/or pneumonia, again followed by Dr. Gallagher. 6. Chronic obstructive pulmonary disease without exacerbation. 7. Anxiety, stable. 8. Chronic pain, stable. HOSPITAL COURSE: Briefly, Mr. Cast is a 61-year-old male with a history of CLL followed by Dr. Gallagher, COPD, coronary artery disease status post non STEMI, nicotine dependence, who presented to the ED with 24 hours of abdominal and chest pain. Symptoms began the day before his admission. He went to Dr. Gallagher's office where they ordered a CT scan of the abdomen and pelvis. There was concern for an abdominal mass. While he was in CT, he began experiencing chest pain in the mid sternum associated with shortness of breath, as well as abdominal pain and nausea. After the CT he was transferred to the ED for evaluation. His EKG showed nonspecific ST changes in the lateral leads, profound leukocytosis, elevated D-dimer with an elevated proBNP. He reports he is not on chemotherapy, but is on something for his immune system that he takes once a month. Chest x-ray in the ED showed interstitial markings in the mid right lung believed to be fibrosis. He was initially admitted for chest pain with cardiology consult. Trended his enzymes. His cardiac enzymes were negative. Pulmonary arteriogram was negative for a new PE , slightly worsening right upper lobe infiltrate, severe COPD with bronchitis and pulmonary scarring and splenomegaly. Per Dr. Wood his EKG that was done at 0927 hours in the morning shows sinus tachycardia with diffuse nonspecific T-wave changes; that is not a new finding, and the pain began when he was holding his arms up for the CT scan. It was truly atypical chest pain. It is not anginal. Dr. Wood's recommendation was to consult Dr. Gallagher. In regarding to his marked leukocytosis and suggesting using LIDYA inhibitor to manage his heart failure, he was initiated on IV antibiotics for his pneumonia, resolved bronchodilators and supplemental O2. The patient is known to Dr. Gallagher for low-grade leukemia lymphoma, and for his persistent leukocytosis that keeps getting worse. He may require treatment in the near future. Since initiation of antibiotics, his WBCs have gone from [address] Gallagher has seen the patient today. He has approved him for discharge and to follow up with him in 2 weeks. VITAL SIGNS: Temperature is 98.7 degrees, heart rate 95, respirations 18, blood pressure 106/72, O2 is 98% on 2 L nasal cannula. DISCHARGE DIET: Regular. DISCHARGE MEDICATIONS: 1. DuoNeb 3 mL inhaled RT q. 4 hours. 2. ProAir 2 puffs inhaled q. 6 hours p.r.n. 3. Xanax 1 mg p.o. t.i.d. 4. Zithromax 250 mg p.o. daily for 3 days. 5. TUMS 500 mg p.o. t.i.d. 6. Keflex 500 mg p.o. q. 12 hours for 14 days. 7. Advair 550 Diskus 1 inhaled q. 12 hours. 8. [place] 7.5/325, 1 each p.o. t.i.d. 9. Cozaar 50 mg p.o. daily. 10. Prilosec 40 mg p.o. daily. 11. Potassium chloride 8 mEq p.o. daily. 12. Spiriva 18 mcg inhaled p.o. daily. 13. Ipratropium albuterol sulfate inhaler, inhaled q. 4-6 hours p.r.n. FOLLOWUP: Mr. Cast is being discharged home. He will follow up with Dr. Gautam Evans, as well as Dr. Gallagher in 2 weeks. He is to take all medications as prescribed. He is to return to the ED for any worsening of symptoms. I personally performed a face to face evaluation on this patient, also I review laboratory work and images, I agree with the assessment and treatment, breathing treatment, home O2, antibiotics, This patient has poor prognosis, she has chronic respiratory failure and CHF, at this moment she is stable, but she has been having multiples admissions to the hospital, Lazaro Hernandez MD. Dictated by CHELY Marie for Lazaro France MD cc: MD Gautam Camacho MD MTDD
== END 2017-07-28 13:58 | disposition home or self-care (01) ==
LOC: ED 09:19 → 4N 15:44
PROVIDERS: ATTEND Internal Medicine

== ENCOUNTER 2017-08-20 15:53 | Inpatient (IN) ==
[2017-08-20] MEDS ORDERED: ASPIRIN PO ONE (16:52)
[2017-08-20] MEDS ORDERED: ZOFRAN IV ONE (17:23)
[2017-08-20] MEDS ORDERED: MORPHINE IV ONE (17:23)
[2017-08-20 17:38] LABS: MANUAL DIFF NEEDED? NO
[2017-08-20 17:44] LABS: BASO% 0.2 % (0.0-0.8); EOS# 0.01 X1000 (0.0-0.7); EOS% 0.2 % (0.0-10.0); HEMATOCRIT 29.3 % (42.0-52.0); HEMOGLOBIN 9.6 g/dL (14.0-18.0); IMM GRAN# 0.03 X1000 (0.0-0.04); IMM GRAN% 0.6 % (0.0-0.5); LYMPH# 2.05 X1000 (1.2-3.4); MCH 29.4 PG (27-31); MCHC 32.8 g/dL (33-37); MCV 89.6 FL (81-99); MONO# 0.41 X1000 (0.11-0.59); MONO% 7.6 % (1.7-9.3); NEUT% 53.4 % (42.2-75.2); PLT 84 X1000 (130-400); RBC 3.27 XMIL (4.7-6.1)
[2017-08-20 17:52] LABS: INR 1.02; PROTIME 10.7 Seconds (9.2-11.7); PTT 22.1 Seconds (22.0-36.0)
[2017-08-20] MEDS ORDERED: NS 500 ML IV ONE (18:01)
[2017-08-20] MEDS ORDERED: NS 500 ML ONE (18:02)
[2017-08-20 18:05] LABS: AGAP 12; ALBUMIN 3.5 g/dL (3.5-5.0); ALKALINE PHOSPHATASE 71 U/L (32-122); BUN 15 mg/dL (8-22); CALCIUM 7.8 mg/dL (8.8-10.2); CHLORIDE 107 mmol/L (98-107); CK PROFILE 66 U/L (24-204); COSMO 290; GOT 26 U/L (10-34); GPT 12 U/L (10-44); MAGNESIUM 1.4 mg/dL (1.5-2.7); POTASSIUM 4.8 mmol/L (3.5-5.1); SODIUM 142 mmol/L (136-145); TCO2 23 mmol/L (25-35); TOTAL BILIRUBIN 0.26 mg/dL (0.20-1.00); TOTAL PROTEIN 5.9 g/dL (6.3-8.3)
--- NOTE | 2017-08-20 18:10 | Diag Imaging Result Doc PS360 ---
CHEST-2 VIEWS - 08/20/2017 INDICATION: CP TECHNIQUE: COMPARISON: 07/25/2017 FINDINGS: Stable strandy scarring at the lateral right upper lobe and left lower lobe. No new or focal infiltrates. No pneumothorax or pleural effusion. Heart size and pulmonary vascularity are normal. IMPRESSION: No change from prior. Electronically signed by Dc Carrasquillo 08/20/2017 6:08 PM
[2017-08-20] MEDS ORDERED: DUONEB (A & A) INH ONE (20:39)
--- NOTE | 2017-08-20 20:42 | PROVIDER DOCUMENTATION ---
This chart was entered by Joshua Meyer Scribe, acting as scribe for Joshua Mata MD. HPI-Chest Pain - General Chief Complaint: Chest Pain Stated Complaint: cp Time Seen by Provider: 08/20/17 15:53 Source: patient Allergies/Adverse Reactions: Patient Allergies Allergy/AdvReac Type Severity Reaction Status Date / Time No Known Allergies Allergy Verified 08/20/17 16:41 Home Medications: Home Medication List Medication Instructions Recorded Confirmed Last Taken Type Albuterol 2.5MG/Ipratrop 0.5MG 3 ml INH RTQ4H #120 neb 11/02/16 08/20/17 Unknown Rx [Duoneb (A & A)] Alprazolam [Xanax] 1 mg PO TID tablet 07/28/17 08/20/17 08/20/17 07:00 Rx Hydrocodone/Acetaminophen [[place] 1 each PO TID #30 tablet 07/28/17 08/20/17 07:00 Rx 7.5-325 Tablet] Methocarbamol [Robaxin-750] 750 mg PO BID 08/20/17 08/20/17 08/20/17 07:00 History Mirtazapine [Remeron] 15 mg PO HS 08/20/17 08/20/17 08/19/17 20:00 History Rituximab [Rituxan] 10 mg IV DIRECTED 08/20/17 08/20/17 08/19/17 History - History of Present Illness-CP Nature of Presenting Problem: patient is a 61 y/o M that presents from local cancer center with chest pain. patient was receiving chemo when he experienced some short chest pain. he reports having an episode last pm as well.. patient has a 3 year history of leukemia. Has had previous [place]. history of COPD as well. Location: reports: central Quality of Pain: reports: sharp Severity in ED: mild, moderate Onset/Duration: abrupt, just prior to arrival Timing: gone now Context/Activities at Onset: reports: other (receiving chemo) Modifying Factors: improves with: nothing Associated Symptoms: reports: shortness of breath. denies: back pain, diaphoresis, dizziness, fever/chills, nausea, vomiting Nitro Today/Relief: no nitro taken today Aspirin Treatment Today: 325 mg x 1, provided by ED Similar Symptoms Previously?: No Recently Seen Here or By Another Healthcare Provider: Yes Review of Systems - Adult - REVIEW OF SYSTEMS - ADULT Constitutional: denies: chills, fever Eyes: reports: no symptoms reported Ears, Nose, Mouth & Throat: reports: no symptoms reported Cardiovascular: reports: chest pain. denies: orthopnea, palpitations Respiratory: reports: shortness of breath. denies: cough, wheezing Gastrointestinal: denies: abdominal pain, diarrhea, nausea, vomiting Genitourinary: reports: no symptoms reported Musculoskeletal: reports: no symptoms reported Integumentary: reports: no symptoms reported Neurological: reports: no symptoms reported Psychiatric: reports: no symptoms reported Endocrine: reports: no symptoms reported Hematologic/Lymphatic: reports: no symptoms reported Allergic/Immunologic: reports: no symptoms reported All Other Systems: Reviewed and Negative Past History - Adult - PAST MEDICAL HISTORY-ADULT Review of Records: reports: Old Records Reviewed, Nursing Assessment Review, Medications Reviewed Cardiovascular: reports: CAD, CHF, [place] (x2) Respiratory: reports: asthma, COPD, pneumonia Neurological: reports: dementia Endocrine/Immune: reports: Leukemia Additional History: slow progressing leukemia - PRIOR SURGERIES/PROCEDURES Surgical/Procedure History: reports: cholecystectomy - IMMUNIZATION STATUS Childhood Immunizations: See Nurse Assessment Flu Vaccine: See Nurse Assessment - FAMILY HISTORY Family History: reviewed, not pertinent - SOCIAL HISTORY Smoking: quit greater than 1 year, cigarettes Living Situation: family Physical Exam-General - PHYSICAL EXAM-ADULT Initial Vital Signs Reviewed: Yes - CONSTITUTIONAL General Appearance: alert, no apparent distress, other (chronic ill appearing) - EYES Eyes: PERRL/EOMI, pink conjunctivae - HEAD, EARS, NOSE, MOUTH & THROAT HENMT: normocephalic/atraumatic, moist mucous membranes, normal ENT inspection - NECK Neck: full range of motion, normal inspection - RESPIRATORY Respiratory: lungs clear, normal breath sounds, no respiratory distress, no accessory muscle use - CARDIOVASCULAR Cardiovascular: regular rate, rhythm, no edema - GASTROINTESTINAL (ABDOMEN) Abdominal Exam: normal bowel sounds, non tender, soft - MUSCULOSKELETAL Back Exam: no CVA tenderness, no vertebral tenderness Extremity: normal range of motion, normal inspection, no pedal edema - SKIN Integumentary: normal color, warm/dry - NEUROLOGIC Neurologic: grossly normal, no motor/sensory deficits - PSYCHIATRIC Psych/Mental Status: normal mood/affect, normal thought content, normal thought process, oriented x 3 Progress - PLAN OF CARE/RESULTS Progress/Plan/Lab Results: Vital Signs - 8 hr 08/20/17 16:10 08/20/17 16:48 08/20/17 17:29 Temperature 98.2 F 97.7 F Pulse Rate 124 H 117 H 128 H Respiratory Rate 22 20 15 Blood Pressure 99/66 104/72 103/63 O2 Sat by Pulse Oximetry 96 97 92 L 08/20/17 18:15 08/20/17 19:51 Temperature Pulse Rate 100 H 93 H Respiratory Rate 13 21 Blood Pressure 108/64 94/67 O2 Sat by Pulse Oximetry 96 98 Laboratory Results - last 24 hr 08/20/17 08/20/17 08/20/17 16:20 16:20 16:20 WBC 5.39 RBC 3.27 L Hgb 9.6 L Hct 29.3 L MCV 89.6 MCH 29.4 MCHC 32.8 L RDW Std Deviation 14.9 H Plt Count 84 L MPV 10.0 Immature Gran % (Auto) 0.6 H Neut % (Auto) 53.4 Lymph % (Auto) 38.0 [place] % (Auto) 7.6 Eos % (Auto) 0.2 Baso % (Auto) 0.2 Immature Gran # (Auto) 0.03 Neut # (Auto) 2.88 Lymph # (Auto) 2.05 [place] # (Auto) 0.41 Eos # (Auto) 0.01 Baso # (Auto) 0.01 PT INR PTT (Actin FS) Sodium 142 Potassium 4.8 Chloride 107 Carbon Dioxide 23 L Anion Gap 12 BUN 15 Creatinine 1.0 Estimated GFR/1.73 m2 > 60 BUN/Creatinine Ratio 15 Glucose 211 H Calculated Osmolality 290 Calcium 7.8 L Magnesium 1.4 L Total Bilirubin 0.26 AST 26 ALT 12 Alkaline Phosphatase 71 Creatine Kinase 66 Troponin T Ahz-X-Rtvmupziqst Pept 66244 H Total Protein 5.9 L Albumin 3.5 Globulin 2.4 Albumin/Globulin Ratio 1.5 08/20/17 08/20/17 08/20/17 16:20 16:20 19:20 WBC RBC Hgb Hct MCV MCH MCHC RDW Std Deviation Plt Count MPV Immature Gran % (Auto) Neut % (Auto) Lymph % (Auto) [place]linger % (Auto) Eos % (Auto) Baso % (Auto) Immature Gran # (Auto) Neut # (Auto) Lymph # (Auto) [place]linger # (Auto) Eos # (Auto) Baso # (Auto) PT 10.7 INR 1.02 PTT (Actin FS) 22.1 Sodium Potassium Chloride Carbon Dioxide Anion Gap BUN Creatinine Estimated GFR/1.73 m2 BUN/Creatinine Ratio Glucose Calculated Osmolality Calcium Magnesium Total Bilirubin AST ALT Alkaline Phosphatase Creatine Kinase 91 Troponin T 0.025 Ntq-E-Octjmfvisbz Pept Total Protein Albumin Globulin Albumin/Globulin Ratio 08/20/17 19:20 WBC RBC Hgb Hct MCV MCH MCHC RDW Std Deviation Plt Count MPV Immature Gran % (Auto) Neut % (Auto) Lymph % (Auto) [place]linger % (Auto) Eos % (Auto) Baso % (Auto) Immature Gran # (Auto) Neut # (Auto) Lymph # (Auto) [place]linger # (Auto) Eos # (Auto) Baso # (Auto) PT INR PTT (Actin FS) Sodium Potassium Chloride Carbon Dioxide Anion Gap BUN Creatinine Estimated GFR/1.73 m2 BUN/Creatinine Ratio Glucose Calculated Osmolality Calcium Magnesium Total Bilirubin AST ALT Alkaline Phosphatase Creatine Kinase Troponin T 0.019 Jwv-W-Ugaxqehkouo Pept Total Protein Albumin Globulin Albumin/Globulin Ratio Orders Category Date Time Status Cardiac Monitoring DIRECTED Care 08/20/17 16:57 Active Saline Loc NOW Care 08/20/17 16:57 Active CHEST-2 VIEWS [RAD] Stat Exams 08/20/17 16:57 Completed CBC WITH ELECTRONIC DIFF [HEME] Stat Lab 08/20/17 16:20 Completed CK PROFILE [SP CHEM] Stat Lab 08/20/17 16:20 Completed CK TOTAL [CHEM] Stat Lab 08/20/17 19:20 Completed COMPREHENSIVE METABOLIC PANEL [CHEM] Stat Lab 08/20/17 16:20 Completed MAGNESIUM [CHEM] Stat Lab 08/20/17 16:20 Completed PRO B-NATRIURETIC PEPTIDE Stat Lab 08/20/17 16:20 Completed PROTIME WITH INR [COAG] Stat Lab 08/20/17 16:20 Completed PTT [COAG] Stat Lab 08/20/17 16:20 Completed TROPONIN T Stat Lab 08/20/17 16:20 Completed TROPONIN T Stat Lab 08/20/17 19:20 Completed 0.9% Sodium Chloride Inj [Ns] 500 ml Med 08/20/17 18:02 Discontinued .ROUTE As Directed 0.9% Sodium Chloride Inj [Ns] 500 ml Med 08/20/17 18:01 Discontinued IV 999 mls/hr Aspirin Med 08/20/17 16:52 Discontinued 325 mg PO NOW ONE Morphine Med 08/20/17 17:23 Discontinued 4 mg IV NOW ONE Ondansetron [Zofran] Med 08/20/17 17:23 Discontinued 4 mg IV NOW ONE EKG [EKG] Stat Ther 08/20/17 16:57 Ordered EKG [EKG] Stat Ther 08/20/17 19:09 Ordered Result Diagrams: 08/20/17 16:20 08/20/17 16:20 - REASSESSMENT Reassessment #1 Time Reassessed: 20:41 (CURRENTLY PAIN FREE) - EKG 1 Time of EKG reading by physician:: 16:30 EKG Read and Signed by:: Stephan Celis EKG Interpretation (*Must complete 3 of following elements*): Abnormal Rate: 115 Rhythm: Sinus Tachycardia MA Interval: normal ST Wave: non-specific ST changes 2 Time of EKG reading by physician:: 19:39 EKG Read and Signed by:: Joshua Mata EKG Interpretation (*Must complete 3 of following elements*): Abnormal Rate: 96 Rhythm: NORMAL SINUS RHYTHM QRS: normal MA Interval: normal Prior EKG Comparison: unchanged from prior Departure - Departure Date of Disposition Decision: 08/20/17 Time of Disposition Decision: 20:40 DIAGNOSIS: Chest pain Disposition: ADMITTED INPATIENT 09 Certified Medical Emergency: Emergent Condition: Fair Referrals and Follow-Ups: Gautam Evans MD [Primary Care Provider] - - Critical Care Note This patient required my direct & personal management of CC.: No Attestation - Physician/ [place] Attestation Patient care was provided by Advanced Practice Provider:: No The physician spent face to face time with patient:: Yes Advanced Practice Provider documentation review:: Supervising physician onsite and consulted in the evaluation and care of this patient. The physician did have a face to face encounter with the patient. This chart was documented by the indicated scribe, (Joshua Meyer, Marilyn) and accurately reflects the services I performed and decisions made by Esperanza fay Cyrus S, MD, as attested by the provider's signature.
[2017-08-20] MEDS ORDERED: MAGNESIUM SULFATE 2 GM/S.W.I. 2 GM/50 ML IVPB IV ONE (21:09)
[2017-08-20] MEDS ORDERED: ZOFRAN IV PRN (22:08)
[2017-08-20] MEDS ORDERED: ALBUTEROL NEB INH ONE (22:16)
[2017-08-20] MEDS: DUONEB (A & A) INH SCH (23:19)
[2017-08-20 23:41] LABS: HEMOGLOBIN A1C 4.3 % (4.8-6.0)
[2017-08-20] MEDS: ROBAXIN PO SCH (23:52)
[2017-08-20] MEDS: XANAX PO SCH (23:52)
[2017-08-20] MEDS: REMERON PO SCH (23:52)
[2017-08-20] MEDS: NORCO-7.5 PO SCH (23:53)
[2017-08-21] MEDS: DUONEB (A & A) INH SCH ×7 (03:14→23:14)
--- NOTE | 2017-08-21 03:32 | HISTORY AND PHYSICAL ---
CHIEF COMPLAINT: Chest pain. PRIMARY CARE PROVIDER: Gautam Evans MD. FORESTRY BIOLOGY SPECIALIST: Dr. Paige. ONCOLOGIST: Dr. Gallagher. HISTORY OF PRESENT ILLNESS: Mr. Cast is a 61-year-old male with a history of with a history of CLL followed by Dr. Gallagher, COPD, uses 2 L of home O2, has recently had to go to 3 L at nighttime, coronary artery disease with continued nicotine dependence and GERD, who comes in tonight with chest pain. He stated all day yesterday he had chest pain. To be fair, he had chest pain that has been persistently getting worse over the last couple of months. He was last admitted on 07/25/2017 for chest pain. At any rate, today he went to see Dr. Gallagher to have his 1st dose of chemotherapy, per the patient. He started having chest pain during the infusion. He received morphine which initially made it better, then he had more chest pain so Dr. Gallagher called an ambulance to transport him to [facility] emergency room. The patient states normally the chest pain gets worse with walking. He is no longer to lay flat without feeling like he is suffocating. On the last admission, an echocardiogram was obtained which showed an ejection fraction of 30% so the patient does have a congestive heart failure and does not appear to be on Lasix or a diuretic at home. Two sets of cardiac enzymes were obtained in the emergency room and were negative. A chest x-ray was stable from last admission. The patient will be admitted for further evaluation and treatment. PAST MEDICAL HISTORY: See HPI. PREVIOUS SURGICAL HISTORY: 1. Cholecystectomy. 2. Face and nose surgery. SOCIAL HISTORY: Smokes half a pack a day. He has cut back from a pack a day. Drinks 2 beers a day. He was a chronic alcoholic for 43 years. The last 3 years he drank 1/5 of Tequila to a liter of Tequila daily. He has not drank liquor in 7 years. He was taking 1 dose of NyQuil every night to sleep and had done this for many years but it started causing him to have diarrhea so he stopped. He lives at home with his daughter. FAMILY HISTORY: The patient had 5 total siblings, 2 brothers, 3 sisters. Both brothers from COPD. Two of the 3 sisters also from COPD. The sister from cancer of unknown type of cancer. ALLERGIES: No known drug allergies. HOME MEDICATIONS: 1. DuoNeb 3 mL inhalation every 4 hours. 2. Xanax 1 mg p.o. t.i.d. 3. [place] 7.5 one 1 p.o. t.i.d. 4. Remeron 50 mg p.o. at bedtime. 5. Rituxan 10 mg IV as directed. 6. Robaxin 750 mg p.o. b.i.d. REVIEW OF SYSTEMS: Fourteen point review of systems conducted with the patient. Pertinent positives listed above in the HPI. All other systems reviewed and found to be negative. PHYSICAL EXAMINATION: VITAL SIGNS: Temperature 98.2 degrees, pulse 108, respirations 18, blood pressure 108/64, oxygen saturation 99% on 3 L nasal cannula. GENERAL: Unkempt 61-year-old male sitting in the ER stretcher. Answers all questions appropriately, is pleasant to talk to, is in no acute distress. HEENT: Head is atraumatic, normocephalic. Pupils equal, round, reactive to light. Extraocular eye movement intact. Sclerae is anicteric. Conjunctivae is pale. Oral mucosa is moist. NECK: Supple. No JVD. No thyromegaly. Trachea is midline. No cervical lymphadenopathy. CARDIAC: S1-S2 appreciated. No murmurs, gallops, rubs. Regular rhythm. LUNGS: Diminished bilaterally. Mild expiratory wheezing noted throughout the lung shaw. Symmetrical rise and fall with respirations. ABDOMEN: Soft, nondistended, nontender. Bowel sounds present in all 4 quadrants hypoactive. No pulsatile mass. No organomegaly. EXTREMITIES: No clubbing, cyanosis. 1+ pitting edema bilateral lower extremities. Diminished pedal pulses bilaterally. NEUROLOGICAL: Alert and oriented x3. Cranial nerves 2-12 grossly intact. DIAGNOSTIC DATA: Chest x-ray, chronic COPD changes, no acute infiltrates. LABORATORY DATA: WBC 5.39, hemoglobin 9.6, hematocrit 29.3, platelet count 14.84. Coags within normal limits. Sodium 142, potassium 4.8, chloride 107, carbon dioxide 28, BUN 15, creatinine 1.0, glucose 211, magnesium 1.4. ASSESSMENT AND PLAN: 1. Chest pain. We will rule out acute myocardial infarction. The patient was recently admitted and had an echocardiogram which did show global hypokinesis with an ejection fraction of 30%. We will order stress test in a.m. Consult Cardiology if needed. Trend cardiac enzymes. Patient has had 2 negative sets to this point. We will try to optimize medications. It is possible that Ranexa may be a choice for continued chest pain. 2. Congestive heart failure. As noted above, ejection fraction is 30%. However , his blood pressure is very near hypotension. He does not take Lasix daily. He received a fluid bolus in the emergency room. He does not appear to be fluid volume depleted. We will monitor fluid status but will not give fluids or diuretic at this time. 3. CLL, aware. Patient is followed by Dr. Gallagher. As this is just a chest pain rule out, we will not consult Dr. Gallagher at this time but if this is needed going forward we will consult. 4. Chronic obstructive pulmonary disease with no exacerbation. The patient uses oxygen at home. We will continue oxygen and nebs. Albuterol treatment was given in the emergency room. 5. Hypomagnesemia. We will give 2 g of magnesium. Recheck laboratory data. 6. Hyperglycemia. Check hemoglobin A1c. Further recommendations per patient clinical course. Dictated by CHELY Xavier for Will Day MD cc: CHELY Xavier MD Moses Awoniyi, MD Ashish K. Basu, MD Naveen T. Lobo, MD pt examined, seen face to face , examined, pt presents with chest pain, cardiac exam was rrr, we will continue to monitor and get a stress test and cardiology opinion in am , chf appears to be compensated at this time APENOT MTDD
--- NOTE | 2017-08-21 05:32 | EKG Report ---
Test Performed on : 08/20/2017 4:27:08 PM Test Reason : CP Blood Pressure : / mmHG Vent. Rate : 115 BPM Atrial Rate : 115 BPM P-R Int : 122 ms QRS Dur : 072 ms QT Int : 334 ms P-R-T Axes : 064 050 082 degrees QTc Int : 462 ms Sinus tachycardia. Nonspecific ST and T wave abnormality Abnormal ECG When compared with ECG of 28-JUL-2017 06:46, No significant change was found Unconfirmed Result
--- NOTE | 2017-08-21 05:36 | EKG Report ---
Test Performed on : 08/20/2017 7:15:38 PM Test Reason : cp Blood Pressure : / mmHG Vent. Rate : 096 BPM Atrial Rate : 096 BPM P-R Int : 128 ms QRS Dur : 078 ms QT Int : 372 ms P-R-T Axes : 085 054 086 degrees QTc Int : 469 ms Normal sinus rhythm. Cannot rule out Inferior infarct , age undetermined Abnormal ECG When compared with ECG of 20-AUG-2017 16:27, (Unconfirmed) No significant change was found Unconfirmed Result
--- NOTE | 2017-08-21 06:53 | EKG Report ---
Test Performed on : 08/21/2017 06:24:08 AM Test Reason : chest pain Blood Pressure : / mmHG Vent. Rate : 065 BPM Atrial Rate : 065 BPM P-R Int : 162 ms QRS Dur : 084 ms QT Int : 434 ms P-R-T Axes : 070 065 051 degrees QTc Int : 451 ms Sinus rhythm. with marked sinus arrhythmia. Nonspecific T wave abnormality Abnormal ECG When compared with ECG of 20-AUG-2017 19:15, (Unconfirmed) No significant change was found Confirmed by Johan Davis MD ([id number]) on 08/21/2017 1:33:45 PM
[2017-08-21 06:56] LABS: BASO% 0.1 % (0.0-0.8); EOS# 0.02 X1000 (0.0-0.7); EOS% 0.3 % (0.0-10.0); HEMATOCRIT 25.4 % (42.0-52.0); HEMOGLOBIN 8.3 g/dL (14.0-18.0); LYMPH% 59.1 % (20.5-51.1); MANUAL DIFF NEEDED? YES; MCH 29.1 PG (27-31); MCHC 32.7 g/dL (33-37); MCV 89.1 FL (81-99); MONO# 1.46 X1000 (0.11-0.59); MONO% 19.2 % (1.7-9.3); MPV 9.7 FL (7.4-10.4); NEUT% 21.3 % (42.2-75.2); PLT 72 X1000 (130-400); RBC 2.85 XMIL (4.7-6.1)
[2017-08-21 07:11] LABS: LYMPHS 78 % (21-51)
[2017-08-21 07:12] LABS: AGAP 10; BUN 23 mg/dL (8-22); CALCIUM 7.7 mg/dL (8.8-10.2); CHLORIDE 107 mmol/L (98-107); COSMO 287; POTASSIUM 5.2 mmol/L (3.5-5.1); SODIUM 142 mmol/L (136-145); TCO2 25 mmol/L (25-35)
[2017-08-21] MEDS ORDERED: LEXISCAN ONE (07:53)
[2017-08-21] MEDS: NORCO-7.5 PO SCH ×3 (09:00→16:39)
[2017-08-21] MEDS: XANAX PO SCH ×3 (09:00→16:39)
[2017-08-21] MEDS ORDERED: XANAX PO SCH (09:00)
[2017-08-21] MEDS: PRILOSEC PO SCH (09:00)
[2017-08-21] MEDS ORDERED: NORCO-7.5 PO SCH (09:00)
[2017-08-21] MEDS ORDERED: AMINOPHYLLINE ONE (09:36)
--- NOTE | 2017-08-21 11:32 | HISTORY AND PHYSICAL ---
ADDENDUM: This is a 61-year-old male with history of chronic lymphocytic leukemia, who is getting chemotherapy today and had several episodes of chest pain. Came to the ER for work up. EKG was unrevealing. Cardiac exam was regular rate and rhythm. Pulmonary with breath sounds clear to auscultation. He does have known CHF with an EF of 30%. Plan will be to place on telemetry, and check serial cardiac enzymes and Lexiscan stress imaging noninvasive to evaluate for reversible ischemia. cc: Will Day MD [facility]
[2017-08-21] MEDS: ROBAXIN PO SCH ×2 (12:55→21:13)
[2017-08-21] MEDS: LOVENOX SUBQ SCH (12:56)
--- NOTE | 2017-08-21 14:35 | Diag Imaging Result Document ---
PROCEDURE NAME: MYOCARDIAL PERF SCAN, STR/REST - 08/21/2017 INDICATION: Chest pain. PROCEDURES PERFORMED: 1. Lexiscan stress. 2. One-day stress/rest myocardial perfusion imaging. PROCEDURE IN DETAIL: Mr. Cast was brought to the nuclear laboratory and had a resting study with injection of 10.7 mCi of technetium-99m sestamibi, with usual imaging protocol utilized. He subsequently was brought back and had a Lexiscan stress. At peak stress, was injected with 30.9 mCi of technetium-99m sestamibi, with usual imaging protocol utilized. FINDINGS: LEXISCAN STRESS RESULTS: 1. Baseline EKG shows sinus rhythm with nonspecific diffuse ST-T changes. 2. Lexiscan stress did not demonstrate any clear evidence of ischemic-related EKG changes or significant arrhythmias. Occasional PVCs were identified, along with PACs. PERFUSION IMAGING RESULTS: 1. There is no evidence of abnormal extracardiac uptake. 2. TID ratio is 1.08. 3. Perfusion imaging demonstrates a moderate- to large-sized, moderate to severe intensity, fixed defect located in the apical, inferior apical, mid inferior, basal inferior, as well as some portions of the inferior septal and inferior lateral segments. This defect is fixed and consistent with infarct. No clear evidence of significant ischemia as identified. 4. There is a severely-reduced ejection fraction of 27%. End-diastolic volume 155. End systolic volume 113. There appears to be akinesis of the apex, as well as the inferior wall, with global hypokinesis. cc: MD Baljinder Cuellar CRNP
--- NOTE | 2017-08-21 15:21 | PROGRESS NOTE ---
DATE: 08/21/2017 SUBJECTIVE: This patient is still complaining of chest pain that most of the time comes with physical activity. He feels chest tightness, he has bilateral generalized wheezing and likely he has COPD exacerbation as well. We asked for a stress test that was done today in the morning, and apparently he started having pain and the study was not completed, at least this is the information that I have for now. I do not have the specific results. Cardiology Department will be consulted. He has a past medical history of CLL and he is thrombocytopenic. I will let Dr. Gallagher know about this patient as well. OBJECTIVE: Vital Signs: Temperature 97.4 degrees, pulse 91, respiratory rate 16, blood pressure 97/60, O2 saturation 94% on 2 L of nasal cannula. HEENT: Head normocephalic. No trauma. PERRLA. Neck: Supple. No JVD. No masses. Central trachea. Chest: Decreased breath sounds globally with prolonged expiratory phase, bilateral wheezing. Abdomen: Soft, nontender, nondistended. No hepatosplenomegaly. Cardiovascular: Regular rhythm and rate. Extremities: 1+ lower extremity edema. No clubbing. No cyanosis. Neurological: The patient is alert and oriented x3. No focal deficits. LABORATORY: WBC 7.6, hemoglobin 8.3, hematocrit 25.4, platelets 72,000. Sodium 142, potassium 5.2, chloride 107, bicarbonate 25, BUN 23, creatinine 1, glucose 100, calcium 7.7, magnesium 2.5. ASSESSMENT AND PLAN: 1. Chest pain. This patient has a stress test done today and apparently he started having pain. I am not quite sure if the study was complete, but either way, I will consult Cardiology Department. His ejection fraction is around 30%. Cardiac enzymes have been negative so far. 2. Congestive heart failure. As noted above, the ejection fraction is around 30%; however, his blood pressure is very near to hypotension. He does not appear to be dehydrated. We will monitor. As soon as I can, I will start feeding this patient. 3. Chronic lymphocytic leukemia, aware. Dr. Gallagher has been consulted. 4. Thrombocytopenia. We will monitor. Again, Dr. Gallagher has been consulted. 5. Chronic obstructive pulmonary disease exacerbation. This patient uses oxygen at home. We have placed this patient on breathing treatments, and if this patient does not have any cardiac problems, I will start this patient on steroids, continue with oxygen and pulmonary toilet. 6. Hypomagnesemia, resolved. 7. Hyperglycemia. His hemoglobin A1c is 4.3. Today his blood sugar is normal, around 100. We will continue to monitor. 8. Mild hyperkalemia. Aware. We will monitor. 9. Anemia, normocytic. Likely chronic. cc: Lazaro France MD
[2017-08-21] MEDS ORDERED: LASIX IV ONE (15:22)
[2017-08-21] MEDS: DIOVAN PO SCH (16:38)
[2017-08-21] MEDS: TOPROL XL PO SCH (16:38)
[2017-08-21] MEDS: NICODERM PATCH TD PRN (19:04)
[2017-08-21] MEDS: REMERON PO SCH (21:13)
--- NOTE | 2017-08-21 22:56 | CONSULTATION ---
DATE OF CONSULTATION: 08/21/2017 IMPRESSION: 1. Chest pain, but atypical for myocardial ischemia. 2. Chronic lymphocytic leukemia, with more recent development of splenomegaly, for which patient has just recently initiated chemotherapy. 3. Cardiomyopathy, with left ventricular ejection fraction of 20-30%. 4. History of previous myocardial infarction, with noninvasive myocardial perfusion study showing a fixed inferior wall defect and diminished left ventricular systolic function. Previous coronary angiography reportedly demonstrated no severe coronary obstructive lesions, per patient report. Records not available. Stress myocardial perfusion study today demonstrates fixed inferior wall defect, but no reversible defects, and significantly reduced left ventricular systolic function. Similar to previous studies. 5. Chronic obstructive pulmonary disease. 6. History of previous heavy alcohol use in the past. 7. Chronic ongoing cigarette use. RECOMMENDATIONS: 1. Given stress myocardial perfusion study today showing fixed inferior defect, no reversible defects, and significantly depressed left ventricular systolic function similar to previous studies, continued medical management from a cardiac standpoint appears most appropriate. 2. Suggest considering alternative etiologies for patient's chest symptoms in shoring up treatment for chronic obstructive pulmonary disease and possible gastroesophageal reflux. 3. Reasonable for patient to be discharged to home in the next 24 hours. HISTORY OF PRESENT ILLNESS: This is a 61-year-old white male with a past history of chronic lymphocytic leukemia, COPD, cardiomyopathy, previous myocardial infarction, previous heavy alcohol use, continued smoking, and more recent development of splenomegaly for which chemotherapy has been initiated, was admitted from Dr. Gallagher's office for chest pain. He describes central discomfort that feels as though he has breathed in some severely cold air. Discomfort tends to occur spontaneously, can also be associated with physical activity. He was receiving chemotherapy in Dr. Gallagher's office, and had such an episode. He was administered narcotic analgesics, but discomfort recurred. He was referred to the emergency room. He relates having a heart attack perhaps 2 years ago, and was evaluated in [place]. He reports that previous coronary angiography demonstrated no significant coronary stenosis, and was managed medically. Stress myocardial perfusion studies have consistently demonstrated fixed inferior defect, no reversible defects, and significantly reduced left ventricular systolic function. PAST MEDICAL HISTORY: 1. Chronic lymphocytic leukemia. 2. Chronic obstructive pulmonary disease. 3. Cardiomyopathy. 4. Previous myocardial infarction, as outlined above. 5. Previous heavy alcohol use. PAST SURGICAL HISTORY: 1. Cholecystectomy. 2. Unspecified face and nose surgery. ALLERGIES: No known drug allergies. MEDICATIONS PRIOR TO ADMISSION: As listed. SOCIAL HISTORY: He smokes a half pack of cigarettes per day, and cut back more than a year ago. He drinks 2 beers a day. He relates that several years ago, he would drink liquor daily, and considered himself an alcoholic. FAMILY HISTORY: Negative for premature coronary disease. REVIEW OF SYSTEMS: Pulmonary: Noteworthy for some nonproductive cough. He has chronic exertional dyspnea. There has been no orthopnea. Gastrointestinal: Noncontributory. Constitutional: Noncontributory. The remainder of the review of systems negative/noncontributory beyond history of present illness, with 14 total systems reviewed. PHYSICAL EXAMINATION: General: This is a thin, older middle-aged male in no distress, who appears older than stated age. Vital Signs: Blood pressure 100/60, heart rate 71 and regular, oxygen saturation 94% on nasal cannula oxygen at 2 L/minute. HEENT: Extraocular movements intact. Mucous membranes are moist. Neck: Supple, without jugular venous distention. Chest: Clear to auscultation bilaterally. Cardiac: Reveals a regular rate and rhythm, without appreciable murmur or gallop. Abdomen: Soft, nontender. Extremities: Without edema. Neurologic: Reveals him to be alert, fully oriented. Speech is fluent. He moves all 4 extremities equally well. Skin: Warm and dry. Psychiatric: Reveals mood to be appropriate. DIAGNOSTIC DATA: ECG demonstrates sinus rhythm, with sinus arrhythmia and nonspecific T-wave abnormality. Recent echocardiography dated 07/25/2017 reports left ventricular ejection fraction of 30% and inferior akinesis. There is mild tricuspid regurgitation. Stress myocardial perfusion study today indicates [id number], [id number] intensity fixed defect in the apical, inferoapical, mid inferior, basal inferior, as well as some portions of inferoseptal and inferolateral segments. No significant reversibility or ischemia is evident. Calculated ejection fraction was 27%, with akinesis of the apex and inferior wall, along with global hypokinesis. Results similar to previous studies. LABORATORY DATA: Hematocrit 25.4, white blood cell count 7.62. BUN 23, creatinine 1.0. Troponin T 0.017, and followup troponin T 0.020. cc: Ariel Sosa MD
[2017-08-22] MEDS: DUONEB (A & A) INH SCH ×6 (03:53→23:05)
[2017-08-22 06:35] LABS: BASO% 0.2 % (0.0-0.8); EOS# 0.12 X1000 (0.0-0.7); EOS% 1.2 % (0.0-10.0); HEMATOCRIT 28.3 % (42.0-52.0); HEMOGLOBIN 9.4 g/dL (14.0-18.0); LYMPH# 7.11 X1000 (1.2-3.4); LYMPH% 68.8 % (20.5-51.1); MANUAL DIFF NEEDED? YES; MCH 29.6 PG (27-31); MCHC 33.2 g/dL (33-37); MONO% 11.6 % (1.7-9.3); MPV 9.4 FL (7.4-10.4); NEUT% 18.2 % (42.2-75.2); PLT 101 X1000 (130-400); RBC 3.18 XMIL (4.7-6.1)
[2017-08-22] MEDS: PRILOSEC PO SCH (06:38)
[2017-08-22 06:50] LABS: EOS 2 % (1-10); LYMPHS 56 % (21-51); MONO 12 % (1-9)
[2017-08-22 06:51] LABS: AGAP 11; BUN 26 mg/dL (8-22); CALCIUM 8.8 mg/dL (8.8-10.2); CHLORIDE 104 mmol/L (98-107); COSMO 287; POTASSIUM 4.8 mmol/L (3.5-5.1); SODIUM 142 mmol/L (136-145); TCO2 27 mmol/L (25-35)
[2017-08-22] MEDS: NORCO-7.5 PO SCH ×3 (08:33→20:06)
[2017-08-22] MEDS: LOVENOX SUBQ SCH (08:33)
[2017-08-22] MEDS: DIOVAN PO SCH (08:33)
[2017-08-22] MEDS: XANAX PO SCH ×3 (08:33→20:06)
[2017-08-22] MEDS: TOPROL XL PO SCH (08:33)
[2017-08-22] MEDS: ASPIRIN PO SCH (08:33)
[2017-08-22] MEDS: ROBAXIN PO SCH ×2 (08:33→20:06)
--- NOTE | 2017-08-22 08:41 | CONSULTATION ---
DATE OF CONSULTATION: 08/22/2017 REQUESTING PHYSICIAN: Lazaro France MD. CHIEF COMPLAINT: The patient was admitted with chest pain. HISTORY OF PRESENT ILLNESS: Patient is a 61-year-old male, who is well known to me. He has a history of CLL. Recently, he was noted to have a significant splenomegaly and worsening counts, and we decided to get him started on chemotherapy. Yesterday, he was receiving chemotherapy with rituximab, Cytoxan, and vincristine. While receiving rituximab, he developed mid back pain and shortness of breath. We gave him antiallergic medicines. Subsequently, he developed chest pain, and he was sent to the ER via ambulance for evaluation and further management. At present, the patient has been scheduled for a perfusion scan as well as a cardiology consultation. Cardiac enzymes so far apparently have been negative. PAST MEDICAL HISTORY: History of CLL, COPD on home O2, GERD, CLL, hypogammaglobulinemia with recurrent infections, anxiety. PAST SURGICAL HISTORY: Cholecystectomy, face and nose surgery. SOCIAL HISTORY: The patient is a chronic smoker. He drinks several beers a day as well. He denies substance abuse. FAMILY HISTORY: Positive for COPD and cancer. ALLERGIES: No known drug allergies. CURRENT MEDICATIONS: [place], mini nebs, Xanax, aspirin, Lovenox, Lasix, Robaxin, Remeron, Toprol, NicoDerm, Prilosec, Zofran, and Diovan. REVIEW OF SYSTEMS: Patient has baseline shortness of breath and cough. He denies nausea, vomiting, abdominal pain. He denies blood per rectum or melena. He denies dysuria, hematuria, or frequency. He is tired and weak. All other review of systems are negative. PHYSICAL EXAMINATION: General: Thinly built, cachectic male in no acute distress. Vital Signs: Temperature 97.4 degrees, pulse 70, blood pressure 98/62. Eyes: EOMI. PERRLA. Anicteric. Mouth: Mucous membranes are moist. Neck: Supple without JVD, thyromegaly, or nodules. Cardiac: Regular rate and rhythm. Normal S1, S2. Chest: Clear to auscultation except for occasional wheezes. Abdomen: Soft, nontender. Splenomegaly is noted. Extremities: No cyanosis, clubbing, or edema. Neurological: Alert and oriented x3. No focal motor deficits. LABORATORY DATA: White count 7.6, hemoglobin 8.3, hematocrit 25, MCV 89, platelets 72,000. BUN 23, creatinine 1.0. LFTs are normal. CPK 10 and troponin so far normal. ASSESSMENT AND PLAN: 1. Chronic lymphocytic leukemia with significant splenomegaly and cytopenias: His chronic lymphocytic leukemia is worsening, and therapy is required. During his first cycle, it is expected that he will have a reaction with rituximab and we premedicated him. Despite that, he developed a reaction. Unfortunately along with that, he developed chest pains as well. 2. Chest pain: CPK and troponins are negative. Further evaluation per hospitalist and Cardiology. 3. Congestive heart failure: He has ejection fraction of 30% and known history of congestive heart failure. Does not appear to be decompensated. 4. Thrombocytopenia: Due to splenomegaly, thrombocytopenia seems to have worsened over the last couple of days due to acute situation. Continue to monitor for now. 5. Deep venous thrombosis prophylaxis: I agree with Lovenox for now. 6. Chronic obstructive pulmonary disease on home O2. Continue mini nebs for now. cc: Mitesh Gallagher MD
[2017-08-22] MEDS ORDERED: LASIX PO SCH (09:00)
[2017-08-22] MEDS: NICODERM PATCH TD PRN (11:54)
--- NOTE | 2017-08-22 17:44 | PROGRESS NOTE ---
DATE: 08/22/2017 SUBJECTIVE: This patient is still having mild shortness of breath, but compared with yesterday he looks a little bit better. Cardiology Department evaluated this patient. A stress test did not show any new abnormality. He is breathing better. Dr. Gallagher knows this patient because he has CLL. No new recommendations for now. He is still having wheezing. Hopefully tomorrow we will discharge this patient home. OBJECTIVE: Vital Signs: Temperature 98 degrees, pulse 90, respiratory rate 18, blood pressure 102/69, oxygen saturation 99 on 2 L of nasal cannula. HEENT: Head normocephalic. No trauma. PERRLA. Neck: Supple. No JVD. No masses. Central trachea. Chest: Decreased breath sounds globally with prolonged expiratory phase, bilateral wheezing. Abdomen: Soft, nontender, nondistended. No hepatosplenomegaly. Cardiovascular: RRR. Extremities: 1+ lower extremity edema. No clubbing. No cyanosis. Neurological Examination: The patient is alert and oriented x3. No focal deficits. LABORATORY: WBC 10.3, hemoglobin 9.4, hematocrit 28.3, platelets 101,000. Sodium 142, potassium 4.8, chloride 104, bicarbonate 27, BUN 26, creatinine 1.1, glucose 86, calcium 8.8. ASSESSMENT AND PLAN: 1. Chest pain. A stress test done yesterday did not show any new abnormality. Cardiology Department evaluated this patient. Likely this pain is related to his lung problems. Continue with same management. 2. Congestive heart failure with an ejection fraction of 30%. Not in exacerbation at this moment. 3. Chronic obstructive pulmonary disease exacerbation. Continue with oxygen and breathing treatments. He is still having some wheezing so I will start this patient on a low dose steroid p.o. and once he goes home we will remove this medication slowly. 4. Chronic lymphocytic leukemia. Dr. Gallagher has seen the patient. No new recommendations. 5. Thrombocytopenia. Getting better. 6. Hypomagnesemia. Resolved. 7. Hyperglycemia. Stable. His hemoglobin A1c is 4.3 so he does not have diabetes. 8. Mild hyperkalemia. Resolved. 9. Normocytic anemia. Likely chronic. cc: Lazaro France MD
[2017-08-22] MEDS: REMERON PO SCH (20:06)
[2017-08-23] MEDS: DUONEB (A & A) INH SCH ×2 (03:10→07:23)
[2017-08-23] MEDS: PRILOSEC PO SCH (06:14)
[2017-08-23 06:47] LABS: AGAP 11; BUN 33 mg/dL (8-22); CALCIUM 8.6 mg/dL (8.8-10.2); CHLORIDE 102 mmol/L (98-107); COSMO 294; POTASSIUM 4.6 mmol/L (3.5-5.1); SODIUM 144 mmol/L (136-145); TCO2 31 mmol/L (25-35)
[2017-08-23] MEDS: TOPROL XL PO SCH (07:44)
[2017-08-23] MEDS: ASPIRIN PO SCH (07:44)
[2017-08-23] MEDS: NICODERM PATCH TD PRN (07:44)
[2017-08-23] MEDS: XANAX PO SCH (07:45)
[2017-08-23] MEDS: DIOVAN PO SCH (07:45)
[2017-08-23] MEDS: ROBAXIN PO SCH (07:45)
[2017-08-23] MEDS: NORCO-7.5 PO SCH (07:46)
[2017-08-23] MEDS: LOVENOX SUBQ SCH (07:47)
[2017-08-23 07:57] VITALS: BP 99/60
--- NOTE | 2017-08-23 08:39 | PROGRESS NOTE ---
DATE: 08/22/2017 HISTORY OF PRESENT ILLNESS: Patient reports that he has had a good night. He feels much better today. He has mild shortness of breath and is on nasal cannula O2 at this time. No further chest pains. He was evaluated by Cardiology without myocardial perfusion scan. No acute changes at this time. We have plans for his discharge tomorrow. PHYSICAL EXAMINATION: Temperature 98.1 degrees, pulse 101, blood pressure 107/ 85.Eyes: EOMI. PERRLA. Anicteric. Mucous membranes appear moist. Cardiac Exam: Regular rate and rhythm. Normal S1, S2. Chest: Reveals occasional wheezing bilaterally. No crackles. Abdomen: Soft, nontender, without hepatomegaly but splenomegaly is present. Extremities: Without edema. LABORATORY DATA: White count 10.3, hemoglobin 9.4, platelets 101,000. BUN 26, creatinine 1.1. ASSESSMENT AND PLAN: 1. CLL with splenomegaly and cytopenias: Platelet count has come back to it baseline at this time. He developed an infusional reaction with rituximab. 2. Chest pain: This may be pulmonary in nature. During his reaction he was having a difficult time breathing. HI has been ruled out. 3. History of congestive heart failure with EF of 30%. Known history of CAD. 4. COPD on home O2. He is on Mini nebs. Discharge tomorrow as planned. cc: Mitesh Gallagher MD MTDD
[2017-08-23] MEDS ORDERED: PREDNISONE PO SCH (09:00)
[2017-08-23] MEDS ORDERED: MEDROL DOSEPAK PO SCH (11:30)
[2017-08-23] MEDS ORDERED: MEDROL PO SCH (12:00)
--- NOTE | 2017-08-24 19:40 | DISCHARGE SUMMARY ---
ADMISSION DATE: 08/20/2017 DISCHARGE DATE: 08/23/2017 DISCHARGE DIAGNOSES: 1. Chronic obstructive pulmonary disease exacerbation. 2. Congestive heart failure with an ejection fraction of 30%. 3. Chronic lymphocytic leukemia. 4. Thrombocytopenia. 5. Normocytic anemia. CONSULTATIONS: 1. Cardiology Department, Dr. Ariel Sosa. 2. Hematology/Oncology Department Dr. Gallagher. PROCEDURES PERFORMED: Myocardial perfusion scan/ stress test dated 08/21/2017. Findings: Baseline EKG shows sinus rhythm with nonspecific diffuse ST/T changes. Lexiscan stress did not demonstrate any clear evidence of ischemic-related EKG changes or significant to read yeison, occasional PVCs were identified along with PACs. HOSPITAL COURSE: This 61-year-old, male with a past medical history of CLL followed by Dr. Gallagher, COPD on home oxygen around 2 L, past medical history of alcohol abuse was admitted on 08/28/2017 secondary to chest pain that apparently started the day before admission. He has been getting worse over the last couple of months. He has been admitted before also for chest pain. Apparently he started getting chemotherapy and he started having chest pain during the infusion a some days ago. He received morphine the day of admission but then, Dr. Gallagher called the ambulance to transport this patient to the emergency room. Apparently the chest pain gets worse with walking. He cannot lie flat. Because he feels like he is suffocating. Cardiology Department evaluated this patient. With treatment, this patient was getting better. We did a stress test that did not show any acute abnormality, but this patient was found to have, in the emergency department, bilateral wheezes and shortness of breath. So, probably this chest pain is related to his COPD that was exacerbated. This patient was placed on steroids and breathing treatment and he was getting on a daily basis. Today, he was completely at baseline. This is why I decided to discharge this patient with a followup by Dr. Gallagher and also follow up with his primary care doctor in 1 week. At the moment of discharge, this patient was in a stable medical condition tolerating p.o. and ambulating. He will be discharged with home oxygen as usual. PHYSICAL EXAMINATION: Vital Signs: Temperature 97.3 degrees, pulse 96, respiratory rate 19, blood pressure 100/60, oxygen saturation 100% on 3 L of nasal cannula. HEENT: Normocephalic. No trauma. PERRLA. Neck: Supple. No JVD. No masses. Central trachea. Chest: Decreased breath sounds globally with prolonged expiratory phase. No wheezing. No rales. Abdomen: Soft, nontender, nondistended. No hepatosplenomegaly. Cardiovascular: RRR. No murmurs. Extremities: No edema. No clubbing. No cyanosis. Neurological: The patient is alert and oriented x3. No focal deficits. LABORATORY: Sodium 144, potassium 4.6, chloride 102, bicarbonate 31, BUN 33, creatinine 1, glucose 97, calcium 8.6. DISCHARGE MEDICATIONS: Aspirin 81 mg p.o. daily, furosemide 20 mg p.o. daily, metoprolol succinate 25 mg p.o. daily, valsartan 40 mg p.o. daily, DuoNeb inhalation every 4 hours p.r.n., Remeron 15 mg p.o. daily at bedtime, rituximab 10 mg p.o. intravenous as directed by Dr. Gallagher, Robaxin 750 mg p.o. twice a day, alprazolam 1 mg p.o. 3 times a day, [place] 7.5 one tablet p.o. 3 times a day p.r.n. TIME DISCHARGING THIS PATIENT: Thirty-five minutes. cc: Lazaro France MD
== END 2017-08-23 12:38 | disposition home or self-care (01) ==
LOC: ED 15:53 → 3N 15:53 → SUATTDRO 22:24 → OBSVTOIN 22:24
PROVIDERS: ATTEND Internal Medicine